=== PATIENT | female | born 1990 | race Two or more races ===

== ENCOUNTER 2017-02-04 02:43 | Observation (INO) | payer MEDICAID | END 2017-02-04 04:14 | disposition home or self-care (01) | DRG 566 | LOC: LDRP 02:43 | PROVIDERS: ADMIT Obstetrics & Gynecology; ATTEND Obstetrics & Gynecology | DX: O26.893 Other specified pregnancy related conditions, third trimester (principal); M54.5 Low back pain; Z3A.29 29 weeks gestation of pregnancy | CPT/HCPCS: 59025; 81002; G0378 ==

== ENCOUNTER 2019-10-03 18:16 | Inpatient (IN) | payer MEDICAID ==
[~2019-10-03] VITALS: Ht 162.6 cm; Wt 83.9 kg
[~2019-10-03 18:16] MED LIST: PREN-96 PO
[2019-10-03 18:32] VITALS: BP 130/71
[2019-10-03 19:59] LABS: Urine Bacteria FEW /hpf (None Seen); Urine Blood Negative /uL (Negative); Urine Mucus FEW (None Seen); Urine Specific Gravity 1.024 (1.001-1.035); Urine WBC 2 /hpf (0 - 5)
[2019-10-03 20:14] LABS: Amphetamine Screen, Urine NEGATIVE (NEGATIVE); Barbiturate Scree,Urine NEGATIVE (NEGATIVE); Benzodiazephine Screen, Urine NEGATIVE (NEGATIVE); Cannabinoid Screen, Urine NEGATIVE (NEGATIVE); Cocaine Screen, Urine NEGATIVE (NEGATIVE); Opiate Scree,Urine NEGATIVE (NEGATIVE); Phencyclidine Screen, Urine NEGATIVE (NEGATIVE)
== END 2019-10-03 21:03 | disposition home or self-care (01) | DRG 565 ==
LOC: ER 18:16 → LDRP 18:36
PROVIDERS: ADMIT Obstetrics & Gynecology; ATTEND Obstetrics & Gynecology
DX: O47.9 False labor, unspecified (principal); Z3A.24 24 weeks gestation of pregnancy
CPT/HCPCS: 59025; 76815; 80307; 81001; 81002; G0378